=== PATIENT | female | born 1950 | race American Indian/Alaskan Native ===

== ENCOUNTER 2016-12-03 10:50 | Outpatient (CLI) | payer MEDICARE ==
--- NOTE | 2016-12-03 14:16 | Mammography Report ---
BILATERAL MAMMOGRAM: FINDINGS: The breasts are almost entirely fat (<25% glandular). No mass, distortion, suspicious calcification, or skin change is seen. No interval change compared to prior study in December 2014. CAD was utilized. IMPRESSION: Negative mammogram. There is no mammographic evidence of malignancy. RECOMMENDATION: Follow-up per ACS guidelines. BI-RADS CATEGORY: 1 = Negative ACR BI-RADS MAMMOGRAPHIC CODES: 0 = Needs additional imaging evaluation; 1 = Negative; 2 = Benign; 3 = Probably benign; 4 = Suspicious; 5 = Malignant; 6 = Known biopsy-proven malignancy COMMENT: 1. Dense breast tissue, i.e., adenosis, fibrocystic changes, etc., may obscure an underlying neoplasm. 2. Approximately 10% of cancers are not detected with mammography. 3. A negative mammography report should not delay biopsy if a clinically suspicious mass is present. COMMENT: Patient follow-up letters are generated in [employer].
== END 2016-12-03 10:51 | disposition home or self-care (01) ==
LOC: MAMMO 10:50
PROVIDERS: ATTEND Internal Medicine
DX: Z12.31 Encounter for screening mammogram for malignant neoplasm of breast (principal)
CPT/HCPCS: 77067; G0202

== ENCOUNTER 2017-04-05 14:39 | Emergency (ER) | payer MEDICARE ==
[2017-04-05 15:40] LABS: Alanine Aminotransferase 7 units/L (7-56); Albumin 3.9 g/dL (3.9-5); Albumin/Globulin Ratio 1.1 %; Alkaline Phosphatase 81 units/L (35-129); Anion Gap 15 mmol/L; BUN/Creatinine Ratio 18.57; Blood Urea Nitrogen 13 mg/dL (7-17); Calcium 9.2 mg/dL (8.4-10.2); Carbon Dioxide 31 mmol/L (22-30); Chloride 100.7 mmol/L (98-107); Glucose 82 mg/dL (65-100); Sodium 143 mmol/L (137-145); Total Protein 7.3 g/dL (6.3-8.2)
[2017-04-05 15:49] LABS: Basophils % (Auto) 0.8 % (0.0-1.8); Eosinophils % (Auto) 2.6 % (0.0-4.3); Hematocrit 37.9 % (30.3-42.9); Hemoglobin 12.3 gm/dl (10.1-14.3); Mean Corpuscular HGB Conc 33 % (30-34); Mean Corpuscular Hemoglobin 27 pg (28-32); Mean Corpuscular Volume 82 fl (79-97); Platelet Count 241 K/mm3 (140-440); Red Blood Count 4.61 M/mm3 (3.65-5.03); Red Cell Distribution Width 14.2 % (13.2-15.2); White Blood Count 4.6 K/mm3 (4.5-11.0)
[2017-04-05 16:22] LABS: Bacteria,Urine 1+ /HPF (Negative); Bilirubin,Urine NEG (Negative); Blood,Urine NEG (Negative); Ketones,Urine NEG (Negative); Leukocyte Esterase,Urine SM (Negative); Mucus,Urine 3+ /HPF; Nitrite,Urine NEG (Negative); Protein,Urine <15 mg/dL mg/dL (Negative); Urobilinogen,Urine < 2.0 mg/dL (<2.0)
[2017-04-05] MEDS ORDERED: NORCO 10/325 PO ONE (23:46)
--- NOTE | 2017-04-06 00:16 | Emergency Department Report ---
HPI - General Chief Complaint: Pain General Time Seen by Provider: 04/05/17 23:45 - HPI HPI: 66-year-old -[place] female brought to the ED with cough, congestion, body aches. Her symptom is gone on for the past 4 days without any modifying factors. Patient has not taking any medication at home for condition except for her arthritis medication. Patient denies any fever or chills or night sweats. Patient denies any alleviating or exacerbating factors. She describes a body ache as dull, mostly in her joints. ED Past Medical Hx - Past Medical History Previous Medical History?: Yes Hx Hypertension: Yes Hx Arthritis: Yes - Surgical History Past Surgical History?: Yes Additional Surgical History: hysterectomy - Social History Smoking Status: Former Smoker Substance Use Type: None - Medications Home Medications: Home Medications Medication Instructions Recorded Confirmed Last Taken Type Minoxidil [Loniten] 2.5 mg PO BID #60 tablet 11/16/14 10/16/15 10/16/15 Rx amLODIPine [Norvasc] 10 mg PO DAILY #30 tab 11/16/14 10/16/15 10/16/15 Rx Folic Acid [Folvite] 1 mg PO QDAY 10/16/15 10/16/15 10/16/15 History Methotrexate(Dose Weekly Only) 2.5 mg PO BID 10/16/15 10/16/15 10/16/15 History Olmesartan/Hydrochlorothiazide 1 tab PO QDAY 10/16/15 10/16/15 10/16/15 History [Benicar HCT 40-25 mg] predniSONE [Deltasone] 5 mg PO DAILY 10/16/15 10/16/15 10/16/15 History Azithromycin [Zithromax Z-ALPHONSE] 250 mg PO DAILY #6 tablet 04/06/17 Unknown Rx ED Review of Systems ROS: Stated complaint: BODY ACHES/SORE THROAT/HEADACHE Other details as noted in HPI Comment: All other systems reviewed and negative Gastrointestinal: nausea Musculoskeletal: myalgia Skin: rash Physical Exam - Physical Exam Vital Signs: Vital Signs 04/05/17 04/05/17 04/05/17 14:56 17:56 19:54 Temperature 97.6 F 97.4 F L Pulse Rate 80 74 74 Respiratory 16 18 18 Rate Blood Pressure 145/98 154/97 156/112 Blood Pressure [Right] O2 Sat by Pulse 98 98 98 Oximetry 09/03/17 22:40 Temperature 98 F Pulse Rate 74 Respiratory 20 Rate Blood Pressure Blood Pressure 148/104 [Right] O2 Sat by Pulse 99 Oximetry Physical Exam: - Physical Exam - General Limitations: No Limitations General appearance: alert, in no apparent distress, obese - Head Head exam: Present: atraumatic, normocephalic - Eye Eye exam: Present: normal appearance - ENT ENT exam: Present: mucous membranes moist - Neck Neck exam: Present: normal inspection - Respiratory Respiratory exam: Present: normal lung sounds bilaterally. Absent: respiratory distress - Cardiovascular Cardiovascular Exam: Present: normal rhythm, normal rate. Absent: systolic murmur, diastolic murmur, rubs, gallop - GI/Abdominal GI/Abdominal exam: Present: soft, normal bowel sounds - Extremities Exam Extremities exam: Present: normal inspection - Back Exam Back exam: Present: normal inspection - Neurological Exam Neurological exam: Present: alert, oriented X3 - Psychiatric Psychiatric exam: normal affect and mood - Skin Skin exam: Present: warm, dry, intact, normal color. Absent: rash ED Course Vital Signs 04/05/17 04/05/17 04/05/17 14:56 17:56 19:54 Temperature 97.6 F 97.4 F L Pulse Rate 80 74 74 Respiratory 16 18 18 Rate Blood Pressure 145/98 154/97 156/112 Blood Pressure [Right] O2 Sat by Pulse 98 98 98 Oximetry 04/05/17 22:40 Temperature 98 F Pulse Rate 74 Respiratory 20 Rate Blood Pressure Blood Pressure 148/104 [Right] O2 Sat by Pulse 99 Oximetry ED Medical Decision Making - Lab Data Result diagrams: 04/05/17 15:10 04/05/17 15:10 Critical care attestation.: If time is entered above; I have spent that time in minutes in the direct care of this critically ill patient, excluding procedure time. ED Disposition Clinical Impression: Acute bronchitis Qualifiers: Bronchitis organism: other organism Qualified Code(s): J20.8 - Acute bronchitis due to other specified organisms Disposition: DC-01 TO HOME OR SELFCARE Is pt being admited?: No Does the pt Need Aspirin: No Condition: Stable Instructions: Acute Bronchitis (ED) Prescriptions: Azithromycin [Zithromax Z-ALPHONSE] 250 mg PO DAILY #6 tablet Referrals: GAY NINO MD [Primary Care Provider] - 3-5 Days
[2017-04-06 00:52] VITALS: BP 165/99
--- NOTE | 2017-04-06 12:22 | XRay Report ---
PORTABLE CHEST: Cough An AP portable view of the chest demonstrates a normal cardiac contour considering the limits of this technique. The lungs are clear with no evidence of infiltrate, fluid or failure. No significant change compared to prior exam in July 2012. IMPRESSION: Normal portable chest.
== END 2017-04-06 00:51 | disposition home or self-care (01) ==
LOC: ED 14:39
DX: J20.9 Acute bronchitis, unspecified (principal); I10 Essential (primary) hypertension; M19.90 Unspecified osteoarthritis, unspecified site; Z87.891 Personal history of nicotine dependence
CPT/HCPCS: 36415; 71010; 80053; 81001; 85025; 99284

== ENCOUNTER 2017-12-15 15:53 | Outpatient (CLI) | payer MEDICARE ==
--- NOTE | 2017-12-16 10:05 | Mammography Report ---
BILATERAL DIGITAL SCREENING MAMMOGRAM with CAD: 12/15/17 15:53:00 CLINICAL: Routine screening. COMPARISON:12/03/16 FINDINGS: The breasts are almost entirely fatty.Bilateral benign arterial calcifications. No mass, architectural distortion or suspicious calcifications. IMPRESSION: No mammographic evidence of malignancy. BI-RADS CATEGORY: 2 - - Benign RECOMMENDATION: Routine mammographic screening in one year. COMMENT: Patient follow-up letters are generated by our [employer] application.
== END 2017-12-15 15:54 | disposition home or self-care (01) ==
LOC: SPVWC 15:53
PROVIDERS: ATTEND Internal Medicine
DX: Z12.31 Encounter for screening mammogram for malignant neoplasm of breast (principal)
CPT/HCPCS: 77067

== ENCOUNTER 2019-09-07 10:35 | Outpatient (CLI) | payer MEDICARE ==
--- NOTE | 2019-09-07 16:18 | Mammography Report ---
DIGITAL SCREENING MAMMOGRAM WITH CAD, 09/07/2019 INDICATION: Routine screening mammography. TECHNIQUE: Digital bilateral 2D mammography was obtained in the craniocaudal and mediolateral obliq ue projections. This examination was interpreted with the benefit of Computer-Aided Detection analysi s. COMPARISON: 12/15/2017 FINDINGS: Breast Density: The breasts are almost entirely fatty. There is no evidence of dominant mass, suspicious calcifications or architectural distortion in eithe r breast. Bilateral benign calcifications which are mostly vascular. IMPRESSION: No mammographic evidence of malignancy. Follow up recommendation: Routine yearly BI-RADS Category 2: Benign. A "normal" or negative report should not discourage follow up or biopsy of a clinically significant f inding. A written summary of these findings will be mailed to the patient. The patient will be entered into a mammography reporting system which will generate a reminder letter for the patient's next appointmen t at the appropriate interval. The [employer] recommends yearly mammograms starting at age 40 and continuing as l [place] as a woman is in good health. Breast MRI is recommended for women with an approximate 20-25% or greater lifetime risk of breast cancer, including women with a strong family history of breast or ova zunilda cancer or who have been treated for Hodgkin's disease. Signer Name: Zaire Araiza MD Signed: 09/07/2019 4:14 PM Workstation Name: [id number]
== END 2019-09-07 10:36 | disposition home or self-care (01) ==
LOC: SPVWC 10:35
PROVIDERS: ATTEND Internal Medicine
DX: Z12.31 Encounter for screening mammogram for malignant neoplasm of breast (principal); N64.89 Other specified disorders of breast
CPT/HCPCS: 77067

== ENCOUNTER 2021-06-07 08:46 | Outpatient (CLI) | payer MEDICARE ==
--- NOTE | 2021-06-08 11:05 | Mammography Report ---
DIGITAL SCREENING MAMMOGRAM WITH CAD, 06/07/2021 CLINICAL INFORMATION / INDICATION: Routine screening mammography. SCREENING MAMMO TECHNIQUE: Digital bilateral 2D mammography was obtained in the craniocaudal and mediolateral obliqu e projections. This examination was interpreted with the benefit of Computer-Aided Detection analysis . COMPARISON: 09/07/2019 FINDINGS: Breast Density: There are scattered areas of fibroglandular density. No dominant mass, suspicious calcifications, or architectural distortion in either breast. Stable nodular densities in the right breast, possibly lymph nodes. IMPRESSION: No mammographic evidence of malignancy. Follow up recommendation: Routine yearly BI-RADS Category 2: Benign. A "normal" or negative report should not discourage follow up or biopsy of a clinically significant f inding. A written summary of these findings will be mailed to the patient. The patient will be entered into a mammography reporting system which will generate a reminder letter for the patient's next appointmen t at the appropriate interval. The [employer] recommends yearly mammograms starting at age 40 and continuing as l [place] as a woman is in good health. Breast MRI is recommended for women with an approximate 20-25% or greater lifetime risk of breast cancer, including women with a strong family history of breast or ova zunilda cancer or who have been treated for Hodgkin's disease. Signer Name: Neftali Schultz MD Signed: 06/08/2021 11:01 AM Workstation Name: [id number]
== END 2021-06-07 08:47 | disposition home or self-care (01) ==
LOC: SPVWC 08:46
PROVIDERS: ATTEND Internal Medicine
DX: Z12.31 Encounter for screening mammogram for malignant neoplasm of breast (principal)
CPT/HCPCS: 77067